=== PATIENT | female | born 1955 | race Caucasian/White ===

== ENCOUNTER 2016-03-20 00:39 | Emergency (ER) | payer BC ==
--- NOTE | 2016-03-20 00:57 | ED ---
Upper Extremity Pain - HPI Summary HPI Summary: Patient presents with left wrist pain after slipping on her stairs as she went down to check on the laundry. She fell backwards and caught herself with her left arm and had immediate pain in her wrist. She called her son, who called 911. She was splinted and brought in by EMS. She denies previous injury to this wrist and is left handed. No N/T and she has not taken anything for pain. The patient smells of alcohol but denies consuming any alcohol. - History of Current Complaint Chief Complaint: EDExtremityUpper Stated Complaint: L WRIST PAIN Time Seen by Provider: 03/20/16 00:47 Hx Obtained From: Patient Mechanism Of Injury: Fall From A Standing Position Onset/Duration: Started Minutes Ago Timing: Constant Severity Initially: Severe Severity Currently: Severe Pain Location: Wrist Character: Sharp, Aching Aggravating Factor(s): Movement Alleviating Factor(s): Nothing Associated Signs & Symptoms: Positive: Negative Related History: Dominant Hand Left - Allergies/Home Medications Allergies/Adverse Reactions: Allergies Allergy/AdvReac Type Severity Reaction Status Date / Time No Known Allergies Allergy Verified 11/04/15 09:48 PMH/Surg Hx/FS Hx/Imm Hx Endocrine/Hematology History: Denies: Hx Diabetes Cardiovascular History: Denies: Hx Hypertension, Hx Pacemaker/ICD History: Denies: Hx Renal Disease Musculoskeletal History: Reports: Hx Arthritis, Hx Back Problems - surgery 2009 Sensory History: Reports: Hx Contacts or Glasses Denies: Hx Hearing Aid Opthamlomology History: Reports: Hx Contacts or Glasses Neurological History: Reports: Other Neuro Impairments/Disorders - PAIN CLINIC PT Psychiatric History: Reports: Hx Substance Abuse - alcohol Denies: Hx Panic Disorder - Cancer History Hx Chemotherapy: No Hx Radiation Therapy: No - Surgical History Surgery Procedure, Year, and Place: BACK SURGERY 10/2009-REMOVED CYST. C SECTION 02/1993 Infectious Disease History: No Infectious Disease History: Denies: Traveled Outside the [place] in Last 30 Days - Family History Known Family History: Positive: None - Social History Occupation: Unemployed Lives: With Family Alcohol Use: None Substance Use Type: Reports: None Smoking Status (MU): Never Smoked Tobacco Review of Systems Positive: Arthralgia, Myalgia, Decreased ROM, Edema Negative: Weakness, Paresthesia, Numbness All Other Systems Reviewed And Are Negative: Yes Physical Exam Triage Information Reviewed: Yes Vital Signs On Initial Exam: Initial Vitals Temp Pulse Resp BP Pulse Ox 97.6 F 58 18 110/74 95 03/20/16 00:40 03/20/16 00:40 03/20/16 00:40 03/20/16 00:40 03/20/16 00:40 Vital Signs Reviewed: Yes Appearance: Positive: Well-Appearing, Well-Nourished, Pain Distress Skin: Positive: Warm, Skin Color Reflects Adequate Perfusion, Dry, Soft Head/Face: Positive: Normal Head/Face Inspection Eyes: Positive: EOMI, CHRISTA, Conjunctiva Clear ENT: Positive: Hearing grossly normal Respiratory/Lung Sounds: Positive: Breath Sounds Present Cardiovascular: Positive: Bradycardia Musculoskeletal: Positive: Limited @ - pain restricts all movement, Pain @ - TTP left DRUJ on radial and ulnar aspects; non-tender in the digits of the hand , Edema Left Neurological: Positive: Sensory/Motor Intact, Alert, Oriented to Person Place, Time, NV Bundle Intact Distally Psychiatric: Positive: Affect/Mood Appropriate AVPU Assessment: Alert Procedures - Splinting Location: left distal radius Hand-Made Type: fiberglass Splint: sugar-tong - with posterior mold Pre-Proc Neuro Vasc Exam: normal Post-Proc Neuro Vasc Exam: normal - Joint Reduction Joint Reduction Site: wrist (L) - severe dorsal displacement of distal fragment ; hematoma block injection of 15cc of 0.5% marcaine; finger traction applied Conscious Sedation: No Reduction Attempts: 1 Pre-Procedure NV Exam: Yes Post Joint Reduction Film: joint not reduced - improved position without full reduction Diagnostics - Vital Signs Vital Signs Temp Pulse Resp BP Pulse Ox 03/20/16 00:40 97.6 F 58 18 110/74 95 - Laboratory Lab Statement: Any lab studies that have been ordered have been reviewed, and results considered in the medical decision making process. - Radiology No standard instances Xray Interpretation: Positive (See Comments) Radiology Interpretation Completed By: ED Physician - Comminuted left distal radius fracture with dorsal displacement of the fracture fragment post-reduction Xray Interpretation: Positive (See Comments) - Improved position of distal fragment of left distal radius fracture Radiology Interpretation Completed By: ED Physician Re-Evaluation - Re-Evaluation First Eval Re-Evaluation Time: 01:50 Change: Improved Comment: pain improved Course/Dx - Diagnoses Differential Diagnosis/HQI/PQRI: Positive: Arthritis, Bursitis, Contusion, Fracture (Closed), Hematoma, Strain, Sprain Provider Diagnoses: Fracture of distal end of left radius Discharge - Discharge Plan Condition: Stable Disposition: HOME Prescriptions: oxyCODONE/Acetamin 5/325 MG* [Percocet 5/325 TAB*] 2 tab PO Q4H PRN #36 tab MDD 12 PRN Reason: Pain Patient Education Materials: Arm Fracture in Adults (ED) Referrals: Evans Wilson MD [Primary Care Provider] - Daija Robles MD [Medical Doctor] - Additional Instructions: Call Dr. Robles's office Sunday for an appointment as soon as they deem appropriate. It is important that you elevate your hand above your heart most of the time to decrease swelling. Wear your sling as needed to support your arm and take pain medication as needed. Keep your splint clean, dry and intact. Do not get it wet. Return to the emergency department if your symptoms worsen.
[2016-03-20] MEDS ORDERED: oxyCODONE/Acetamin 5/325 MG* TAB PO ONE ×2 (01:24→02:51)
[2016-03-20] MEDS ORDERED: Ondansetron ODT TAB* 4 MG PO ONE (01:24)
[2016-03-20 03:07] VITALS: BP 102/67
--- NOTE | 2016-03-20 07:40 | RAD ---
INDICATION: Left wrist injury. TECHNIQUE: 3 views of the left wrist were obtained. FINDINGS: There is diffuse soft tissue swelling. There is a transverse comminuted fracture of the distal radial metaphysis with extension to the distal articular margin. The distal fragment is displaced posteriorly three quarters of a shaft diameter. There is also posterior angulation of the distal fragment relative to the proximal fragment. IMPRESSION: COMMINUTED, DISPLACED, ANGULATED INTRA-ARTICULAR FRACTURE OF THE DISTAL RADIUS.
--- NOTE | 2016-03-20 07:47 | RAD ---
INDICATION: Left wrist radiograph status post external reduction COMPARISON: 'S radiograph from the same date acquired at 0124 hours TECHNIQUE: 2 views of the wrist acquired March 20, 2016 at 0225 hours REPORT: Again seen is fractures of the distal left radius and ulna splaying persistent dislocation but improved relative to the most recent wrist radiograph. The distal fracture fragments are displaced slightly dorsally relative to the shaft of the radius and ulna. IMPRESSION: Interval improvement in degree of dorsal dislocation of fracture distal left radius and ulna.
== END 2016-03-20 03:06 | disposition home or self-care (01) ==
LOC: ED 00:39
DX: S52.502A Unspecified fracture of the lower end of left radius, initial encounter for closed fracture (principal); M25.532 Pain in left wrist; W10.9XXA Fall (on) (from) unspecified stairs and steps, initial encounter; Y93.9 Activity, unspecified; Y92.9 Unspecified place or not applicable; Y99.9 Unspecified external cause status
CPT/HCPCS: 99283; A9270-GY

== ENCOUNTER → 2016-03-29 07:59 | Day surgery (SDC) | payer BC ==
[~2016-03-29 07:59] MED LIST: Buffered Lidocaine 1% SYR 3ML* 3 ML/SYR SYRINGE INTRADERM ONE; Buffered Lidocaine 1% SYR 3ML* 3 ML/SYR SYRINGE ONE; Bupivacaine 0.5% W/EPI SDV* 30 ML VIAL ONE; Dexamethasone IV* 4 MG/ML 1 ML (4 MG) ONE; Lidocaine 2% MPF* 2 ML VIAL ONE; Metoclopramide IV* 5 MG/ML 2 ML VIAL IV PRN; Midazolam* 1 MG/ML 2 ML VIAL (2 MG) ONE; Ondansetron INJ* 2 MG/ML VIAL ONE; Propofol* 10 MG/ML 20 ML BTL IV PUSH ONE; Scopolamine 1.5 mg* PATCH TRANSDERM PRN; ceFAZolin 2 GM PREMIX (*) 2 GM/50 ML BAG IVPB ONE; fentaNYL* 50 MCG/ML 2 ML VIAL (100 MCG VIAL) ONE
[2016-03-29 17:00] VITALS: BP 138/87
--- NOTE | 2016-03-30 01:21 | OP ---
DATE OF OPERATION: 03/29/16 [facility] DATE OF : 57 SURGEON: Thomas Lizama MD [facility]CO CONSULTANT: JAVIER Basurto ANESTHESIOLOGIST: Dr. Chandra. ANESTHESIA: General with block. PRE-OP DIAGNOSIS: Left intraarticular distal radius fracture, 3 fragments. POST-OP DIAGNOSIS: Left intraarticular distal radius fracture, 3 fragments. OPERATIVE PROCEDURE: Open reduction internal fixation of left intraarticular, 3 fragments, distal radius fracture. ESTIMATED BLOOD LOSS: 5 mL. COMPLICATIONS: None. FINDINGS: As expected. DESCRIPTION OF PROCEDURE: Kelsey was seen in the preoperative holding area and the correct side and site were marked. We came back to the operating room where a block was performed and anesthesia was induced. The arm was prepped and draped in the usual fashion and formal time-out was performed. A standard longitudinal incision was made over the FCR tendon. Dissection was carried down to the sheath, which was incised longitudinally. The tendon was retracted ulnarly and the subsheath was divided along its entirety. Blunt dissection took this down to the pronator, which was released at the radial margin of the radius and reflected ulnarly via subperiosteal dissection. The fracture was identified and clean. It was very distal fracture. There was a split going up near the vicinity of the interval between the scaphoid and lunate facets. There was a couple of other articular splits. It was a very distal fracture. I went ahead and mobilized the fracture fragments and cleaned up the fracture fragments. I went ahead and released some of the volar extrinsic ligaments but preserved the distal 2 mm. The fracture fragments were immobilized and an open reduction maneuver was performed and the provisional stabilization was obtained via a transradial styloid pin. We got it back in the ball part, but there was still some dorsal tilt. At this point, I went ahead and brought in my plate. The plate was positioned and pinned distally. I checked the fluoroscopic images distal to proximal, so I went ahead and moved the plate even farther distal and we were still just at the level of the fracture line with the distal row screws. I went ahead and pinned the plate and checked fluoroscopic imaging. I was much more satisfied with plate position , so I went ahead and placed 4 distal variable angle 2.4 mm Synthes locking screws into the distal row. At this point, I went ahead and brought the plate down to the bone and checked the fluoroscopic images. I did tweak a couple of things. I thought it was still too flat and it did not have enough radial inclination, so I took out three of the distal screws and went ahead and gave myself some more radial inclination via plate by rotating the plate around the one remaining screw. I then went ahead and resecured the plate to bone. I brought the plate down to bone again and I was much more satisfied with the position at that time. I, therefore, went ahead and placed the 3 proximal cortical 2.4 mm screws. I went ahead and took some final fluoroscopic images. Everything looked good, so I went ahead and reapproximated the pronator with some 3-0 Polysorb suture. The skin was approximated with 3-0 Polysorb suture and skin was closed with 4-0 Monocryl suture. I went ahead and placed Steri- Strips, sterile dressings, and a short arm splint was applied. The patient was then woken back up and taken to the recovery room in stable condition. Tourniquet was deflated at the end of the procedure after the splint was down. The arm had been exsanguinated with the Esmarch and the tourniquet inflated prior to making skin incision. Total tourniquet time was about 100 minutes. [id number]/[facility] #: [id number] PAUL
--- NOTE | 2016-03-31 08:06 | RAD ---
CPT II Codes: 6045F INDICATION: Left distal radius fracture TECHNIQUE: Intraoperative fluoroscopy was provided during plate and screw ORIF of the left distal radius. FINDINGS: A single spot film in the AP projection depicts a plate and screw fixator spanning the left distal radius. Fluoroscopy time: 49 seconds IMPRESSION: As above.
== END | disposition home or self-care (01) ==
LOC: OR 07:59
PROVIDERS: ATTEND Orthopaedic Surgery Hand Surgery
DX: S52.502A Unspecified fracture of the lower end of left radius, initial encounter for closed fracture (principal); M54.16 Radiculopathy, lumbar region; W10.9XXA Fall (on) (from) unspecified stairs and steps, initial encounter; Y92.9 Unspecified place or not applicable
CPT/HCPCS: C1713; C1776; J0690; J1100; J2250; J2405; J2704; J3010

== ENCOUNTER 2021-04-22 06:21 | Inpatient (IN) ==
[~2021-04-22 06:21] MED LIST changes: -Buffered Lidocaine 1% SYR 3ML* 3 ML/SYR SYRINGE INTRADERM ONE; -Buffered Lidocaine 1% SYR 3ML* 3 ML/SYR SYRINGE ONE; +Buffered Lidocaine 1% SYRIN 1 ml INTRADERM ONE; -Bupivacaine 0.5% W/EPI SDV* 30 ML VIAL ONE; -Dexamethasone IV* 4 MG/ML 1 ML (4 MG) ONE; +DiMENhydriNATE IV 50 mg/ml 1 ml VIAL IV PUSH ONE; +HYDROcodone/ACETAMIN 5/325 mg TAB PO PRN; +Lactated Ringers 1000 ml BAG 1,000 ML IV SCH; -Lidocaine 2% MPF* 2 ML VIAL ONE; +Metoclopramide 5 MG/ML VIAL (10 mg) IV PRN; -Metoclopramide IV* 5 MG/ML 2 ML VIAL IV PRN; -Midazolam* 1 MG/ML 2 ML VIAL (2 MG) ONE; +Naloxone 0.4 mg VIAL 0.4 mg/ml 1 ml VIAL IV PRN; +Ondansetron 4 mg VIAL 2 MG/ML 2 ml VIAL IV PRN; -Ondansetron INJ* 2 MG/ML VIAL ONE; -Propofol* 10 MG/ML 20 ML BTL IV PUSH ONE; -Scopolamine 1.5 mg* PATCH TRANSDERM PRN; -ceFAZolin 2 GM PREMIX (*) 2 GM/50 ML BAG IVPB ONE; +fentaNYL 100 mcg/2 ml 50 MCG/ML VIAL IV PRN; -fentaNYL* 50 MCG/ML 2 ML VIAL (100 MCG VIAL) ONE
[2021-04-22] MEDS ORDERED: Bupivacaine 0.5% SDV PF 30ML VIAL ONE (06:40)
[2021-04-22] MEDS ORDERED: fentaNYL 100 mcg/2 ml 50 MCG/ML VIAL ONE ×2 (06:40→08:02)
[2021-04-22] MEDS ORDERED: Dexamethasone IV 4 MG/ML VIAL 1 ml VIAL ONE (06:40)
[2021-04-22] MEDS ORDERED: Ondansetron 4 mg VIAL 2 MG/ML 2 ml VIAL ONE (06:40)
[2021-04-22] MEDS ORDERED: Propofol 0 MG/0 ML BTL ONE (06:40)
[2021-04-22] MEDS ORDERED: Propofol 10 MG/ML 20 ML BTL ONE (06:40)
[2021-04-22] MEDS ORDERED: Phenylephrine IV 10 MG/ML 1 ml VIAL ONE (06:40)
[2021-04-22] MEDS ORDERED: Midazolam 2 mg/2 ml VIAL 1 mg/ml 2 ml VIAL (2 mg) ONE (06:40)
[2021-04-22] MEDS ORDERED: Lidocaine 2% PF 5 ML VIAL ONE (06:40)
[2021-04-22] MEDS ORDERED: DiMENhydriNATE IV 50 mg/ml 1 ml VIAL ONE (06:43)
[2021-04-22] MEDS ORDERED: ceFAZolin 1 GM ADVAN 1 GM ADDV.VIAL IVPB ONE (06:44)
[2021-04-22] MEDS ORDERED: ROPIVACAINE 5 MG/ML 30 ML BTL (0.5%) ONE ×2 (07:10)
[2021-04-22] MEDS ORDERED: Rocuronium 50 mg VIAL 10 mg/ml 5 ml VIAL (50 mg) ONE (07:11)
[2021-04-22] MEDS ORDERED: HYDROmorphone 0.5 MG/0.5 ML SYRINGE ONE ×2 (08:00)
[2021-04-22] MEDS ORDERED: Lactulose 30 ml UDC PO PRN (08:26)
[2021-04-22] MEDS ORDERED: diPHENhydraMINE IV 50 MG/ML 1 ml VIAL (BENADRYL) IV PRN (08:26)
[2021-04-22] MEDS ORDERED: diPHENhydraMINE 25 mg TAB PO PRN (08:26)
[2021-04-22] MEDS ORDERED: Ondansetron ODT 4 mg TAB 4 MG TAB PO PRN (08:26)
[2021-04-22] MEDS ORDERED: Ondansetron 4 mg VIAL 2 MG/ML 2 ml VIAL IV PRN (08:26)
[2021-04-22] MEDS ORDERED: Magnesium Hydroxide LIQ 30 ML UDC PO PRN (08:26)
[2021-04-22] MEDS ORDERED: HYDROcodone/ACETAMIN 5/325 mg TAB ONE (11:26)
[2021-04-22] MEDS: Magnesium Hydroxide LIQ 30 ML UDC PO SCH ×2 (12:34→21:45)
[2021-04-22] MEDS: Vitamin THERAPEUTIC TAB PO SCH (12:35)
[2021-04-22] MEDS: Lactated Ringers 1000 ml BAG 1,000 ML IV SCH ×2 (13:12→23:24)
[2021-04-22] MEDS: ceFAZolin 1 GM ADVAN 1 GM in NS 0.9% 50 ML 50 ML IVPB SCH (16:55)
[2021-04-23] MEDS: ceFAZolin 1 GM ADVAN 1 GM in NS 0.9% 50 ML 50 ML IVPB SCH ×2 (00:24→07:51)
[2021-04-23 06:44] LABS: Calcium 8.4 mg/dL (8.6-10.3); Potassium 3.8 mmol/L (3.5-5.0); eGFR CKD-EPI 99.4 (>60)
[2021-04-23 06:53] LABS: Hematocrit 30 % (35-47); Hemoglobin 10.1 g/dL (12.0-16.0); Mean Platelet Volume 8.3 fL (7.4-10.4); Platelet Count 202 10^3/uL (150-450)
[2021-04-23] MEDS: Vitamin THERAPEUTIC TAB PO SCH (07:53)
[2021-04-23] MEDS: Magnesium Hydroxide LIQ 30 ML UDC PO SCH (07:56)
[2021-04-23] MEDS ORDERED: Flu vaccine *QUAD* 2021-22* 0.5 ML SYRINGE IM ONE (09:00)
[2021-04-23 11:23] VITALS: BP 99/65
== END 2021-04-23 13:20 | disposition home or self-care (01) | DRG 301 ==
LOC: OR 06:21 → SSU 08:26
PROVIDERS: ADMIT Orthopaedic Surgery Adult Reconstructive Orthopaedic Surgery; ATTEND Orthopaedic Surgery Adult Reconstructive Orthopaedic Surgery

== ENCOUNTER 2021-10-04 09:15 | Inpatient (IN) ==
[2021-11-16] MEDS ORDERED: Lactated Ringers 1000 ml BAG 1,000 ML IV SCH (06:00)
[2021-11-16] MEDS ORDERED: Buffered Lidocaine 1% SYRIN 1 ml INTRADERM ONE (06:00)
[2021-11-17] MEDS ORDERED: ceFAZolin 2 GM in NS PREMIX 2 GM/100 ML BAG IVPB ONE (06:13)
[2021-11-17] MEDS ORDERED: Lidocaine 2% PF 5 ML VIAL ONE (06:52)
[2021-11-17] MEDS ORDERED: Propofol 10 MG/ML 20 ML BTL ONE (06:52)
[2021-11-17] MEDS ORDERED: Ketamine HCL 50 mg/ml 10 ml VIAL (500 MG) ONE (07:00)
[2021-11-17] MEDS ORDERED: Midazolam 2 mg/2 ml VIAL 1 mg/ml 2 ml VIAL (2 mg) ONE (07:00)
[2021-11-17] MEDS ORDERED: Phenylephrine 40 mcg/mL 10mL (400mcg) SYRINGE ONE (07:58)
[2021-11-17] MEDS ORDERED: Bupivacaine 0.5% SDV PF 30ML VIAL ONE (08:02)
[2021-11-17] MEDS ORDERED: Acetaminophen IV 1 GM/100ML 1,000 MG/100 ML BAG IV ONE (08:03)
[2021-11-17] MEDS ORDERED: Phenylephrine IV 10 MG/ML 1 ml VIAL ONE (08:04)
[2021-11-17] MEDS ORDERED: Naloxone 0.4 mg VIAL 0.4 mg/ml 1 ml VIAL IV PRN (08:12)
[2021-11-17] MEDS ORDERED: fentaNYL 100 mcg/2 ml 50 MCG/ML VIAL IV PRN (08:12)
[2021-11-17] MEDS ORDERED: Ondansetron 4 mg VIAL 2 MG/ML 2 ml VIAL IV PRN ×2 (08:12→10:39)
[2021-11-17] MEDS ORDERED: Sterile Water for Inj 10 ML ONE ×2 (08:19→08:39)
[2021-11-17] MEDS ORDERED: Ondansetron 4 mg VIAL 2 MG/ML 2 ml VIAL ONE (09:15)
[2021-11-17] MEDS ORDERED: Morphine 2 MG/ML SYRINGE IV PRN (10:39)
[2021-11-17] MEDS ORDERED: Magnesium Hydroxide LIQ 30 ML UDC PO PRN (10:39)
[2021-11-17] MEDS ORDERED: Ondansetron ODT 4 mg TAB 4 MG TAB PO PRN (10:39)
[2021-11-17] MEDS ORDERED: Lactulose 30 ml UDC PO PRN (10:39)
[2021-11-17] MEDS ORDERED: fentaNYL 100 mcg/2 ml 50 MCG/ML VIAL ONE (10:45)
[2021-11-17] MEDS: Lactated Ringers 1000 ml BAG 1,000 ML IV SCH (11:55)
[2021-11-17] MEDS: ceFAZolin 1 GM ADVAN 1 GM in NS 0.9% 50 ML 50 ML IVPB SCH ×2 (16:30→23:42)
[2021-11-17] MEDS: Magnesium Hydroxide LIQ 30 ML UDC PO SCH (20:33)
[2021-11-18] MEDS: Lactated Ringers 1000 ml BAG 1,000 ML IV SCH (04:28)
[2021-11-18 06:15] LABS: Hematocrit 33 % (35-47); Hemoglobin 10.8 g/dL (12.0-16.0); Platelet Count 187 10^3/uL (150-450)
[2021-11-18 06:56] LABS: Calcium 8.6 mg/dL (8.6-10.3); eGFR CKD-EPI 96.6 (>60)
[2021-11-18] MEDS: ceFAZolin 1 GM ADVAN 1 GM in NS 0.9% 50 ML 50 ML IVPB SCH (08:20)
[2021-11-18] MEDS ORDERED: Vitamin THERAPEUTIC TAB PO SCH (09:00)
[2021-11-18] MEDS ORDERED: Cholecalciferol (VIT D3) 1,000 unit TAB PO SCH (09:00)
[2021-11-18] MEDS: Magnesium Hydroxide LIQ 30 ML UDC PO SCH (10:41)
[2021-11-18 12:11] VITALS: BP 117/71
== END 2021-11-18 13:25 | disposition home health service (06) | DRG 470 ==
LOC: OBSVTOIN 11-17 06:02 → INTOOBSV 11-17 06:02 → AA 11-17 06:02 → SSU 11-17 10:39
PROVIDERS: ADMIT Orthopaedic Surgery Adult Reconstructive Orthopaedic Surgery; ATTEND Orthopaedic Surgery Adult Reconstructive Orthopaedic Surgery

== ENCOUNTER 2022-02-22 16:49 | Observation (INO) ==
[2022-02-22] MEDS ORDERED: Ondansetron 4 mg VIAL 2 MG/ML 2 ml VIAL IV PRN (20:47)
[2022-02-22] MEDS ORDERED: Senna TAB 8.6 mg TAB PO PRN (20:51)
[2022-02-22] MEDS: Enoxaparin 40 MG/0.4 ML SYR SUBCUT SCH (21:06)
[2022-02-22 21:08] LABS: ABS Lymphocytes 0.8 10^3/ul (1.0-4.8); ABS Monocytes 0.4 10^3/ul (0-0.8); ABS Neutrophils 4.4 10^3/ul (1.5-7.7); Eosinophil % 0.1 %; Hematocrit 35 % (35-47); Lymphocyte % 13.8 %; Mean Corpuscular HGB Conc 34 g/dL (31-36); Mean Corpuscular Hemoglobin 34 pg (27-31); Mean Corpuscular Volume 98 fL (80-97); Mean Platelet Volume 8.3 fL (7.4-10.4); Platelet Count 197 10^3/uL (150-450); Red Blood Count 3.59 10^6 /uL (3.70-4.87); Red Cell Distribution Width 15 % (10-15); White Blood Count 5.6 10^3/uL (3.5-10.8)
[2022-02-22 21:45] LABS: ALT 21 U/L (7-52); Albumin 4.5 g/dL (3.2-5.2); Alkaline Phosphatase 73 U/L (35-149); Anion Gap 12 mmol/L (2-11); Blood Urea Nitrogen 9 mg/dL (6-24); CO2 Carbon Dioxide 25 mmol/L (22-32); Calcium 8.9 mg/dL (8.6-10.3); Chloride 98 mmol/L (101-111); Globulin 2.3 g/dL (2-4); Glucose 92 mg/dL (70-100); Sodium 135 mmol/L (135-145); Total Protein 6.8 g/dL (6.4-8.9); eGFR CKD-EPI 101.2 (>60)
[2022-02-22 22:37] LABS: Potassium Redraw 3.6 mmol/L (3.5-5.0)
[2022-02-23] MEDS ORDERED: Midazolam 5 mg/ml concentrated 5 mg/ml 1 ml VIAL INJ ONE (04:00)
[2022-02-23] MEDS ORDERED: Flumazenil 0.5 mg/5 ml 0.1 MG/ML 5 ml VIAL IV PUSH PRN (05:03)
[2022-02-23] MEDS: Cholecalciferol (VIT D3) 1,000 unit TAB PO SCH (07:50)
[2022-02-23] MEDS: Polyethylene Glycol 3350 17 GM PACKET PO SCH (07:50)
[2022-02-23 11:04] LABS: Urine Appearance Clear; Urine Bilirubin 1+ (Small) (Negative); Urine Blood Negative (Negative); Urine Color Yellow; Urine Glucose Negative (Negative); Urine Ketones 2+ (40mg/dL) (Negative); Urine Protein 1+ (30 mg/dL) (Negative); Urine pH 6.5 (5.0-9.0)
[2022-02-23 11:05] LABS: Urine Nitrite Negative (Negative); Urine Urobilinogen 0.2 (Negative) (Negative)
[2022-02-23 11:10] LABS: Urine Bacteria Absent (Absent); Urine Red Blood Cell Trace(0-2/hpf) (Absent); Urine Squamous Epithelial Cell Present (Absent); Urine White Blood Cell Trace(0-5/hpf) (Absent)
[2022-02-23] MEDS: Enoxaparin 40 MG/0.4 ML SYR SUBCUT SCH (20:25)
[2022-02-24] MEDS: Polyethylene Glycol 3350 17 GM PACKET PO SCH (09:03)
[2022-02-24] MEDS: Cholecalciferol (VIT D3) 1,000 unit TAB PO SCH (09:05)
[2022-02-24 15:35] VITALS: BP 110/69
== END 2022-02-24 17:13 | disposition swing bed (61) ==
LOC: ED 16:49 → EDHOLD 16:49 → SSU 17:16 → SUATTDRO 20:47 → SSU 02-23 00:33
PROVIDERS: ADMIT Internal Medicine; ATTEND Hospitalist

== ENCOUNTER 2022-02-24 17:25 | Inpatient (IN) ==
[2022-02-24] MEDS ORDERED: Ondansetron 4 mg VIAL 2 MG/ML 2 ml VIAL IV PRN (17:41)
[2022-02-24] MEDS ORDERED: Morphine 2 MG/ML SYRINGE IV PRN (17:43)
[2022-02-24] MEDS ORDERED: Magnesium Hydroxide LIQ 30 ML UDC PO PRN (17:43)
[2022-02-24] MEDS ORDERED: Polyethylene Glycol 3350 17 GM PACKET PO PRN (17:43)
[2022-02-24] MEDS ORDERED: Senna TAB 8.6 mg TAB PO PRN (17:43)
[2022-02-24] MEDS: Enoxaparin 40 MG/0.4 ML SYR SUBCUT SCH (21:18)
[2022-02-25] MEDS: Cholecalciferol (VIT D3) 1,000 unit TAB PO SCH (08:23)
[2022-02-25] MEDS: Enoxaparin 40 MG/0.4 ML SYR SUBCUT SCH (21:53)
[2022-02-26] MEDS: Cholecalciferol (VIT D3) 1,000 unit TAB PO SCH (08:35)
[2022-02-26] MEDS: Enoxaparin 40 MG/0.4 ML SYR SUBCUT SCH (21:25)
[2022-02-27] MEDS: Cholecalciferol (VIT D3) 1,000 unit TAB PO SCH (09:10)
[2022-02-27] MEDS: Enoxaparin 40 MG/0.4 ML SYR SUBCUT SCH (19:59)
[2022-02-28] MEDS: Cholecalciferol (VIT D3) 1,000 unit TAB PO SCH (08:22)
[2022-02-28] MEDS: Enoxaparin 40 MG/0.4 ML SYR SUBCUT SCH (22:09)
[2022-03-01 07:28] VITALS: BP 132/81
[2022-03-01] MEDS: Cholecalciferol (VIT D3) 1,000 unit TAB PO SCH (10:59)
== END 2022-03-01 13:05 | disposition home health service (06) | DRG 536 ==
LOC: SSU 17:25 → SUATTDRO 17:25
PROVIDERS: ADMIT Hospitalist; ATTEND Internal Medicine